=== PATIENT | male | born 1965 | race African-American/Black ===

== ENCOUNTER 2017-11-16 15:04 | Emergency (ER) | payer OTHER ==
[~2017-11-16] VITALS: Ht 165.1 cm; Wt 101.1 kg
[~2017-11-16 15:04] MED LIST: D 10CAP PO; GUAI100S6 PO; IBUP600T26 PO; LORT5TAB PO; SIMV80TA PO; TAB-TAB PO; ZITH250T PO
[2017-11-16 15:35] VITALS: BP 122/67; PULSE 63; RESP 16; TEMP 97.8; O2SAT 98
[2017-11-16 16:25] LABS: BLOOD, URINE LARGE (NEG); GLUCOSE,URINE NEG (NEG); KETONE, URINE 15 mg/dL (NEG); NITRITE,URINE NEG (NEG); URINE LEUKOCYTE ESTERASE NEG (NEG)
[2017-11-16 17:08] LABS: BILIRUBIN, URINE NEG (NEG); URINE COLOR BROWN (YELLW/STRAW)
[2017-11-16 17:10] LABS: AMORPHOUS SEDIMENT, URINE FEW; RBC, URINE 100-200 /hpf (0-3); SQUAMOUS EPITHELIAL CELL URINE 0-5 /hpf (0-5); WBC, URINE 0-2 /hpf (0-5)
[2017-11-16] MEDS ORDERED: SODIUM CHLORIDE 0.9% FLUSH 10 ML FLUSH IV FLUSH PRN (17:30)
[2017-11-16 17:45] VITALS: O2SAT 98
--- NOTE | 2017-11-16 17:53 | RADRPT ---
EXAM DATE/TIME: 11/16/2017 17:38 [place] COMPARISON: No previous studies available for comparison. INDICATIONS : Left sided flank pain for 40 mins. ORAL CONTRAST: No oral contrast ingested. RADIATION DOSE: 27.69 CTDIvol (mGy) ; Patient body habitus MEDICAL HISTORY : Hypercholesterolemia. Sleep apnea SURGICAL HISTORY : None. ENCOUNTER: Initial ACUITY: 1 day PAIN SCALE: 7/10 LOCATION: Left flank TECHNIQUE: Volumetric scanning of the abdomen and pelvis was performed. Using automated exposure control and ad justment of the mA and/or kV according to patient size, radiation dose was kept as low as reasonably achievable to obtain optimal diagnostic quality images. DICOM format image data is available electro nically for review and comparison. FINDINGS: There are mild degenerative changes of the lumbar spine. Lung bases are clear. Liver, gallbladder, sp re[place], adrenals, pancreas, right kidney unremarkable. There is a left proximal ureteral calculus ident ified measuring 4.8 mm on axial image 63 at the level of L3. Urinary bladder unremarkable. Prostatic calcifications are noted. No evidence of bowel obstruction, free fluid or free air. There is evidence of previous umbilical hernia repair with a small mesh just deep to the anterior abdominal wall. The appendix is normal. No aneurysm or adenopathy. There is slight dilatation of the left intrarenal peter ecting system. CONCLUSION: Left proximal ureteral calculus is noted with slight upstream dilatation. Jacky Hart MD on November 16, 2017 at 17:48 Board Certified Radiologist. This report was verified electronically.
[2017-11-16] MEDS ORDERED: MELO7.5T27 PO (17:58)
[2017-11-16] MEDS ORDERED: MULTTAB67 PO (17:58)
[2017-11-16] MEDS ORDERED: BACL10TA PO (17:58)
[2017-11-16] MEDS ORDERED: SIMV40TA PO (17:58)
[2017-11-16] MEDS ORDERED: TAMS5CAP PO (18:13)
[2017-11-16] MEDS ORDERED: PERC5TAB12 PO (18:13)
--- NOTE | 2017-11-16 18:14 | PD ---
HPI Chief Complaint: Flank/Kidney Pain Time Seen by Provider: 17:17 Travel History International Travel<30 days: No Contact w/Intl Traveler<30days: No Traveled to known affect area: No History of Present Illness HPI 52-year-old male complains of left flank pain sudden in onset for about 1 day. Initially the pain was 10/10 however patient reports a bowel movement and then the pain decreased to 2/10. He reports nausea. No vomiting or fever. Positive diaphoresis. No similar prior episodes. No diarrhea. The patient denies excess sweet tea consumption. He reports drinking copious volumes of water. PFSH Past Medical History Arthritis: Yes High Cholesterol: Yes Diminished Hearing: No Respiratory: Yes (sleep apnea) Sleep Apnea: Yes (uses c pap) Tetanus Vaccination: < 5 Years Influenza Vaccination: Yes PNEUMOCCOCAL Vaccine (Year): 2008 Past Surgical History Surgical History: No Previous Surgery Other Surgery: Yes (umbilical hernia) Social History Alcohol Use: Yes Tobacco Use: Yes Substance Use: No Allergies-Medications (Allergen,Severity, Reaction): Coded Allergies: No Known Allergies (Unverified Adverse Reaction, Unknown, 11/16/17) Reported Meds & Prescriptions Reported Meds & Active Scripts Active Flomax (Tamsulosin HCl) 0.4 Mg Cap 0.4 Mg PO HS Percocet (Oxycodone-Acetaminophen) 5-325 mg Tab 1-2 Tab PO Q6H PRN Reported Simvastatin 40 Mg Tab 40 Mg PO HS Multiple Vitamin 1 Tab 1 Tab PO DAILY Baclofen 10 Mg Tab 10 Mg PO Q8HR PRN Meloxicam 7.5 Mg Tab 7.5 Mg PO DAILY Review of Systems Except as stated in HPI: all other systems reviewed are Neg General / Constitutional: No: Fever Physical Exam Narrative GENERAL: 52-year-old male pleasant no acute distress Vital Signs Date Time Temp Pulse Resp B/P (MAP) Pulse Ox O2 Delivery O2 Flow Rate FiO2 11/16/17 17:45 98 Room Air 11/16/17 15:35 97.8 63 16 122/67 (85) 98 SKIN: Warm and dry. HEAD: Atraumatic. Normocephalic. EYES: Pupils equal and round. No scleral icterus. No injection or drainage. ENT: No nasal bleeding or discharge. Mucous membranes pink and moist. NECK: Trachea midline. No JVD. CARDIOVASCULAR: Regular rate and rhythm. RESPIRATORY: No accessory muscle use. Clear to auscultation. Breath sounds equal bilaterally. GASTROINTESTINAL: Abdomen soft, non-tender, nondistended. Hepatic and splenic margins not palpable. There is flank tenderness to percussion on the left side. MUSCULOSKELETAL: Extremities without clubbing, cyanosis, or edema. No obvious deformities. NEUROLOGICAL: Awake and alert. No obvious cranial nerve deficits. Motor grossly within normal limits. Five out of 5 muscle strength in the arms and legs. Normal speech. PSYCHIATRIC: Appropriate mood and affect; insight and judgment normal. Data Data Last Documented VS Vital Signs Date Time Temp Pulse Resp B/P (MAP) Pulse Ox O2 Delivery O2 Flow Rate FiO2 11/16/17 19:16 81 18 117/61 (79) 100 11/16/17 17:45 Room Air 11/16/17 15:35 97.8 Orders Orders Urinalysis - C+S If Indicated (11/16/17 15:30) Complete Blood Count With Diff (11/16/17 17:27) Comprehensive Metabolic Panel (11/16/17 17:27) Lipase (11/16/17 17:27) Ct Abd/Pel W/O Iv Contrast (11/16/17 17:27) Iv Access Insert/Monitor (11/16/17 17:27) Ecg Monitoring (11/16/17 17:27) Oximetry (11/16/17 17:27) Sodium Chloride 0.9% Flush (Ns Flush) (11/16/17 17:30) Ed Discharge Order (11/16/17 18:36) Labs Laboratory Tests Test 11/16/17 15:55 11/16/17 18:00 Urine Color BROWN Urine Turbidity CLOUDY Urine pH 6.0 Urine Specific [place] GREATER/EQUAL 1.030 Urine Protein 30 mg/dL Urine Glucose (UA) NEG mg/dL Urine Ketones 15 mg/dL Urine Occult Blood LARGE Urine Nitrite NEG Urine Bilirubin NEG Urine Urobilinogen 1.0 MG/DL Urine Leukocyte Esterase NEG Urine RBC 100-200 /hpf Urine WBC 0-2 /hpf Urine Squamous Epithelial Cells 0-5 /hpf Urine Amorphous Sediment FEW Microscopic Urinalysis Comment CULT NOT INDICATED White Blood Count 7.5 TH/MM3 Red Blood Count 7.16 MIL/MM3 Hemoglobin 15.8 GM/DL Hematocrit 49.7 % Mean Corpuscular Volume 67.6 FL Mean Corpuscular Hemoglobin 21.5 PG Mean Corpuscular Hemoglobin Concent 31.8 % Red Cell Distribution Width 14.5 % Platelet Count 306 TH/MM3 Mean Platelet Volume 8.5 FL Neutrophils (%) (Auto) 72.5 % Lymphocytes (%) (Auto) 20.9 % Monocytes (%) (Auto) 4.4 % Eosinophils (%) (Auto) 0.2 % Basophils (%) (Auto) 2.0 % Neutrophils # (Auto) 5.4 TH/MM3 Lymphocytes # (Auto) 1.6 TH/MM3 Monocytes # (Auto) 0.3 TH/MM3 Eosinophils # (Auto) 0.0 TH/MM3 Basophils # (Auto) 0.2 TH/MM3 CBC Comment AUTO DIFF Differential Comment AUTO DIFF CONFIRMED Platelet Estimate NORMAL Platelet Morphology Comment NORMAL Ovalocytes 1+ Blood Urea Nitrogen 11 MG/DL Creatinine 1.10 MG/DL Random Glucose 99 MG/DL Total Protein 8.4 GM/DL Albumin 4.2 GM/DL Calcium Level 9.3 MG/DL Alkaline Phosphatase 66 U/L Aspartate Amino Transf (AST/SGOT) 30 U/L Alanine Aminotransferase (ALT/SGPT) 43 U/L Total Bilirubin 0.7 MG/DL Sodium Level 137 MEQ/L Potassium Level 4.0 MEQ/L Chloride Level 105 MEQ/L Carbon Dioxide Level 26.2 MEQ/L Anion Gap 6 MEQ/L Estimat Glomerular Filtration Rate 86 ML/MIN Lipase 81 U/L MDM Medical Decision Making Medical Screen Exam Complete: Yes Emergency Medical Condition: Yes Medical Record Reviewed: Yes Differential Diagnosis Constipation, Gastritis, Acute Cholecystitis, Biliary Colic, Pancreatitis, VEL[place]SQUEZ , Hepatitis, Bowel Obstruction, Cystitis, Mesenteric Ischemia, AAA, Appendicitis , Renal Stone/Hydronephrosis, GERD, perforated viscous Narrative Course CBC & BMP Diagram 11/16/17 18:00 Total Protein 8.4 H, Albumin 4.2, Calcium Level 9.3, Alkaline Phosphatase 66, Aspartate Amino Transf (AST/SGOT) 30, Alanine Aminotransferase (ALT/SGPT) 43, Total Bilirubin 0.7 Urinalysis shows hematuria Last 24 hours Impressions Abdomen/Pelvis CT 11/16/17 [id number] Signed Impressions: Service Date/Time: Thursday, November 16, 2017 17:38 - CONCLUSION: Left proximal ureteral calculus is noted with slight upstream dilatation. Jacky Hart MD The patient is resting comfortably and feels better, is alert and in no distress. The patients results and examination findings were discussed. The repeat examination is unremarkable and benign. The history, exam, diagnostic testing, and current condition do not suggest any significant pathology to warrant further testing, continued ED treatment, admission, or surgical evaluation at this point. The vital signs have been stable. The patient does not have uncontrollable pain, intractable vomiting, or other significant symptoms. The patient's condition is stable and appropriate for discharge. The patient will pursue further outpatient evaluation with a primary care physician or other designated or consulting physician as indicated in the discharge instructions. The patient expressed understanding and was agreeable with this plan. Diagnosis Primary Impression: Kidney stone on left side Referrals: Abraham Quinteros DO call for appointment Med/Other Pt SpecificInfo: Prescription(s) given Scripts Tamsulosin (Flomax) 0.4 Mg Cap 0.4 MG PO HS for Manage Prostate Problems, #7 CAP 0 Refills Prov: Maximino Ricketts MD 11/16/17 Oxycodone-Acetaminophen (Percocet) 5-325 mg Tab 1-2 TAB PO Q6H Y for PAIN SCALE 6 TO 10, #12 TAB 0 Refills Prov: Maximino Ricketts MD 11/16/17 Disposition: 01 DISCHARGE HOME Condition: Stable Maximino Ricketts MD Nov 16, 2017 18:14
[2017-11-16 18:18] LABS: AUTOMATED NEUTROPHIL # 5.4 TH/MM3 (1.8-7.7); BASOPHIL # 0.2 TH/MM3 (0-0.2); EOSINOPHIL % 0.2 % (0.0-4.0); HEMATOCRIT 49.7 % (39.0-51.0); HEMOGLOBIN 15.8 GM/DL (13.0-17.0); LYMPH % 20.9 % (9.0-44.0); LYMPHOCYTE # 1.6 TH/MM3 (1.0-4.8); MEAN CELL VOLUME 67.6 FL (80.0-100.0); MEAN CORPUSCULAR HEMOGLOBIN 21.5 PG (27.0-34.0); MEAN CORPUSCULAR HGB CONC 31.8 % (32.0-36.0); MEAN PLATELET VOLUME 8.5 FL (7.0-11.0); MONO % 4.4 % (0.0-8.0); MONOCYTE # 0.3 TH/MM3 (0-0.9); NEUT % 72.5 % (16.0-70.0); PLATELET COUNT 306 TH/MM3 (150-450); RED CELL DISTRIBUTION WIDTH 14.5 % (11.6-17.2); WHITE BLOOD COUNT 7.5 TH/MM3 (4.0-11.0)
[2017-11-16 18:26] LABS: CHLORIDE 105 MEQ/L (98-107); SODIUM (NA) 137 MEQ/L (136-145)
[2017-11-16 18:29] LABS: ALBUMIN 4.2 GM/DL (3.4-5.0); BICARBONATE 26.2 MEQ/L (21.0-32.0); CALCIUM 9.3 MG/DL (8.5-10.1); GLUCOSE,RANDOM 99 MG/DL (74-106); RED BLOOD COUNT 7.16 MIL/MM3 (4.50-5.90)
[2017-11-16 18:30] LABS: BLOOD UREA NITROGEN 11 MG/DL (7-18)
[2017-11-16 18:32] LABS: ALT (GPT) 43 U/L (12-78); AST (GOT) 30 U/L (15-37)
[2017-11-16 18:33] LABS: GLOMERULAR FILTRATION RATE 86 ML/MIN (>89)
[2017-11-16 18:34] LABS: TOTAL BILIRUBIN ADULT 0.7 MG/DL (0.2-1.0); TOTAL PROTEIN 8.4 GM/DL (6.4-8.2)
[2017-11-16 18:35] LABS: ALKALINE PHOSPHATASE 66 U/L (45-117)
[2017-11-16 18:41] LABS: OVALOCYTES 1+ (NORMAL)
[2017-11-16 19:16] VITALS: BP 117/61
== END 2017-11-16 19:18 | disposition home or self-care (01) ==
LOC: PHED 15:04
DX: N20.0 Calculus of kidney (principal); N20.1 Calculus of ureter; R31.9 Hematuria, unspecified; R61 Generalized hyperhidrosis; R11.0 Nausea; M19.90 Unspecified osteoarthritis, unspecified site; E78.00 Pure hypercholesterolemia, unspecified; G47.30 Sleep apnea, unspecified; Z72.0 Tobacco use
CPT/HCPCS: 74176; 80053; 81001; 83690; 85025; 99284